=== PATIENT | female | born 1995 | race Caucasian/White ===

== ENCOUNTER 2016-05-15 00:42 | Emergency (ER) | payer OTHER ==
[~2016-05-15] VITALS: Ht 172.7 cm; Wt 104.3 kg
[2016-05-15 00:59] VITALS: BP 131/85
[2016-05-15] MEDS ORDERED: NORTREL 1-35 21 EACH PO (01:15)
[2016-05-15] MEDS ORDERED: PROPRANOLOL HC120 M1 PO (01:16)
[2016-05-15] MEDS ORDERED: MACROBID 100 M100 MG PO (01:29)
[2016-05-15] MEDS ORDERED: PYRIDIUM200 M1 PO (01:29)
[2016-05-15] MEDS ORDERED: IBUPROFEN600 M1 PO (01:29)
--- NOTE | 2016-05-15 01:30 | ED GI/GU/ABDOMINAL COMPLAINT ---
History of Present Illness General Chief Complaint: Abdominal Pain/Flank Pain Stated Complaint: ABD PAIN,+N PT TEARFUL Source: patient, old records Exam Limitations: no limitations Vital Signs & Intake/Output Vital Signs & Intake/Output Vital Signs Date Time Temp Pulse Resp B/P Pulse O2 O2 Flow FiO2 Ox Delivery Rate 05/15 0059 100.4 102 16 131/85 99 Room Air Allergies Coded Allergies: No Known Allergies (05/15/16) Reconcile Medications Norethindrone-Ethinyl Estrad (Nortrel 1-35 28 Tablet) 1 MG-35 MCG TABLET 1 TAB PO DAILY CONTROL (Reported) Propranolol HCl (Propranolol HCl ER) 120 MG CAP.SA.24H 1 CAP PO DAILY MIGRAINES (Reported) Triage Note: 21yo FEMALE TO TRIAGE W/CO LOW ABD, BILAT FLANK PAIN SINCE THIS AM. ALSO STATES BURNING WITH URINATION. Triage Nurses Notes Reviewed? yes LMP (ages 10-50): unknown ? n Is pt currently ? No Onset: Morning Duration: hour(s):, constant, continues in ED Timing: recent history Quality/Severity: aching, burning, moderate Location: left flank, right flank, suprapubic Radiation: flank Activities at Onset: none Prior Abdominal Problems: none Past Sexual History: Unobtainable at this time No Modifying Factors: none Associated Symptoms: abdominal pain, dysuria, fever/chills HPI: The morning prior to admission patient complains of painful urination frequency hesitancy with bilateral flank pain radiating to the suprapubic area with chills. She denies fever nausea vomiting diarrhea chest pain cough shortness of breath headache rash bleeding . Past History Travel History Traveled to [place] past 21 day No Medical History Any Pertinent Medical History? see below for history Neurological: MIGRAINES Surgical History Surgical History: non-contributory Psychosocial History What is your primary language Vietnamese Tobacco Use: Never used Family History Hx Contributory? No Review of Systems Review of Systems Constitutional: Reports: see HPI, chills. EENTM: Reports: no symptoms. Respiratory: Reports: no symptoms. Cardiovascular: Reports: no symptoms. GI: Reports: no symptoms. Genitourinary: Reports: see HPI, dysuria, frequency, hesitation, pain, urgency. Musculoskeletal: Reports: no symptoms. Skin: Reports: no symptoms. Neurological/Psychological: Reports: no symptoms. Hematologic/Endocrine: Reports: no symptoms. Immunologic/Allergic: Reports: no symptoms. All Other Systems: Reviewed and Negative Physical Exam Physical Exam General Appearance: well developed/nourished, alert, awake, anxious, mild distress, obese Head: atraumatic, normal appearance Eyes: Bilateral: normal appearance, PERRL, EOMI, normal inspection. Ears, Nose, Throat, Mouth: hearing grossly normal, moist mucous membrane Neck: normal inspection, supple, full range of motion, normal alignment Respiratory: normal breath sounds, chest non-tender, no respiratory distress, quiet respiration, lungs clear Cardiovascular: regular rate/rhythm, normal peripheral pulses, norml femoral pulses equa Peripheral Pulses: 4+ carotid (R), 4+ carotid (L) Gastrointestinal: normal bowel sounds, soft, non-tender, no organomegaly Back: normal inspection, normal range of motion Extremities: normal range of motion, no ligament instability Neurologic/Psych: no motor/sensory deficits, awake, alert, oriented x 3, normal gait, normal mood/affect, customizer II-XII nml as tested Skin: intact, normal color, warm/dry Core Measures ACS in differential dx? No Severe Sepsis Present: No Septic Shock Present: No Progress Differential Diagnosis: ectopic , kidney stone, UTI/pyelo Plan of Care: Orders Procedure Date/time Status URINE 05/15 104 Complete URINALYSIS 05/15 104 Complete Current Medications Sig/Jillian Start time Last Medication Dose Stop Time Status Admin Ibuprofen 800 MG ONCE ONE 05/15 129 UNVr (Motrin) 05/15 130 Nitrofurantoin 100 MG ONCE ONE 05/15 129 UNVr (Macrodantin 50MG 05/15 130 Cap) Phenazopyridine HCl 200 MG ONCE ONE 05/15 129 UNVr (Pyridium) 05/15 130 Laboratory Tests 05/15/16 0105: Urine Color YEL, Urine Clarity CLEAR, Urine pH 6.0, Ur Specific [place] >= 1.030 , Urine Protein TRACE H, Urine Ketones TRACE H, Urine Nitrite NEG, Urine Bilirubin NEG, Urine Urobilinogen 0.2, Ur Leukocyte Esterase TRACE H, Ur Microscopic SEDIMENT EXAMINED, Urine RBC 5-10 H, Urine WBC 10-15 H, Ur Epithelial Cells MANY H, Urine Bacteria MANY H, Urine Mucus MOD H, Urine Hemoglobin SMALL H, Urine Glucose NEG, Urine Test NEGATIVE Initial ED EKG: none Departure Departure Time of Disposition: 127 Disposition: HOME OR SELF CARE Condition: Stable Clinical Impression Primary Impression: UTI (urinary tract infection) Qualifiers: Urinary tract infection type: site unspecified Hematuria presence: without hematuria Qualified Code: N39.0 - Urinary tract infection, site not specified Referrals: JERAMIE ZIMMERMAN MD (PCP/Family) Departure Forms: Customer Survey General Discharge Information Prescriptions: Current Visit Scripts Ibuprofen 1 TAB PO [id number] PRN pain #50 TAB with food Phenazopyridine HCl (Pyridium) 1 TAB PO TID #9 TAB Nitrofurantoin Monohyd/M-Cryst (Macrobid 100 MG Capsule) 1 CAP PO BID #14 CAP with food
== END 2016-05-15 01:46 ==
LOC: ERH 00:42
DX: N39.0 Urinary tract infection, site not specified (principal)
CPT/HCPCS: 81001; 81025